=== PATIENT | male | born 1960 ===

== ENCOUNTER 2024-10-12 10:23 | Outpatient (CLI) | payer OTHER, SELFPAY ==
[2024-10-12 18:54] LABS: PSA, Diagnostic 3.3 ng/mL (<=4.5)
== END 2024-10-12 10:24 | disposition home or self-care (01) ==
LOC: LBO 10:23
PROVIDERS: Visit Provider Urology
DX: N40.1 Benign prostatic hyperplasia with lower urinary tract symptoms (principal); N13.8 Other obstructive and reflux uropathy
CPT/HCPCS: 36415; 84153